=== PATIENT | female | born 1965 | race Asian ===

== ENCOUNTER 2016-12-23 11:52 | Emergency (ER) | payer OTHER ==
[~2016-12-23] VITALS: Ht 167.6 cm; Wt 77.3 kg
[2016-12-23] MEDS ORDERED: IBUPROFEN 600 MG TABLET PO ONE (13:00)
[2016-12-23] MEDS ORDERED: DIAZEPAM 2 MG TABLET PO ONE (13:00)
[2016-12-23 14:25] VITALS: BP 127/67
== END 2016-12-23 15:06 | disposition home or self-care (01) ==
LOC: EMS 11:53
DX: S09.90XA Unspecified injury of head, initial encounter (principal); I10 Essential (primary) hypertension; F17.210 Nicotine dependence, cigarettes, uncomplicated; W20.8XXA Other cause of strike by thrown, projected or falling object, initial encounter; Y93.89 Activity, other specified; Y92.89 Other specified places as the place of occurrence of the external cause; Y99.8 Other external cause status
CPT/HCPCS: 70450; 72125; 99284